=== PATIENT | female | born 1980 | race Caucasian/White ===

== ENCOUNTER → 2017-02-27 | Outpatient (CLI) | payer BC | LOC: BMCIMAGING 07:14 | PROVIDERS: ATTEND Family Medicine | DX: D25.9 Leiomyoma of uterus, unspecified (principal); R93.41 Abnormal radiologic findings on diagnostic imaging of renal pelvis, ureter, or bladder ==

== ENCOUNTER 2017-08-09 09:36 | Emergency (ER) | payer BC ==
[2017-08-09] MEDS ORDERED: NS 1,000 ML IV ONE (09:51)
--- NOTE | 2017-08-09 10:16 | EDPHY ---
H & P Stated Complaint: abdominal pain since colonoscopy yesterday Time Seen by Provider: 08/09/17 09:51 HPI/ROS: CHIEF COMPLAINT: Abdominal pain following colonoscopy HISTORY OF PRESENT ILLNESS: The patient presents to the ED with complaints of abdominal pain following a colonoscopy yesterday. The patient was undergoing colonoscopy for routine follow-up following a parasitic abdominal infection. The patient reportedly had 2 biopsies performed. She reports that her air conditioning coil assembler told her there was some moderate post biopsy bleeding which resolved with irrigation. The patient went home without complication. She began to develop abdominal pain at 2 o'clock in the afternoon yesterday. The patient denies fever or hematochezia. She denies prior abdominal surgical history. She denies significant past medical history. REVIEW OF SYSTEMS: A comprehensive 10 point review of systems is otherwise negative aside from elements mentioned in the history of present illness. Source: Patient Exam Limitations: No limitations - Personal History LMP (Females 10-55): Now Current Tetanus/Diphtheria Vaccine: No Current Tetanus Diphtheria and Acellular Pertussis (TDAP): No - Medical/Surgical History Hx Asthma: No Hx Chronic Respiratory Disease: No Hx Diabetes: No Hx Cardiac Disease: No Hx Renal Disease: No Hx Cirrhosis: No Hx Alcoholism: No Hx HIV/AIDS: No Hx Splenectomy or Spleen Trauma: No Other PMH: none reported - Social History Smoking Status: Never smoked - Physical Exam Exam: General Appearance: Alert, mild discomfort secondary to pain Eyes: Pupils equal and round no pallor or injection ENT, Mouth: Mucous membranes moist Respiratory: There are no retractions, lungs are clear to auscultation Cardiovascular: Regular rate and rhythm Gastrointestinal: Generalized abdominal tenderness, seems to be greatest in the right lower quadrant and left upper quadrant Neurological: A&O, normal motor function, normal sensory exam, normal cranial nerves Skin: Warm and dry, no rashes Musculoskeletal: Neck is supple nontender Extremities: symmetrical, full range of motion Constitutional: Initial Vital Signs Temperature (C) 37 C 08/09/17 09:44 Heart Rate 97 08/09/17 09:44 Respiratory Rate 19 08/09/17 09:44 Blood Pressure 89/75 L 08/09/17 09:44 O2 Sat (%) 98 08/09/17 09:44 O2 Delivery Mode Room Air Allergies/Adverse Reactions: No Known Allergies Allergy (Verified 08/09/17 09:44) Home Medications: Medication Instructions Recorded Docusate Sodium [Colace 100 MG (*)] 100 mg PO BID #20 cap 08/09/17 oxyCODONE/APAP 5/325 [Percocet 1 - 2 tab PO Q6-8PRN PRN #20 tab 08/09/17 5/325 (RX)] Medical Decision Making - Diagnostics Imaging Results: Imaging Impressions Abdomen CT 08/09/17 10:43 Impression: 1. Transmural wall thickening of the cecum and ascending colon, suggesting colitis or intramural hemorrhage. A small amount of air is present within the lateral wall of the cecum, compatible with prior biopsy. 2. Intrahepatic and extrahepatic biliary dilatation. 3. Probable hemangioma right hepatic lobe. 4. Large hyperenhancing mass within the right side of the uterus, most likely representing a uterine leiomyoma. Results called to Dr. Slava Levin at 11:45 a.m. ED Course/Re-evaluation: The patient presents to the ED with fairly significant abdominal pain and tenderness following a colonoscopy yesterday. The patient is noted to be hemodynamically stable. She had an IV established. She received a L of normal saline. She received 4 mg of IV morphine. The patient is noted to have leukocytosis. [place] [address]. The patient 's test is negative. Given the patient's tenderness and leukocytosis , CT scan of the abdomen pelvis was ordered to exclude evidence of intra- abdominal free air, abscess or perforation. CT scan of the abdomen pelvis demonstrates no evidence of a perforation, free air abscess. There are some inflammatory such changes noted within the wall the colon consistent with a intraluminal hematoma. I reviewed the patient's workup with the on-call air conditioning coil assembler Dr. Marie. He informs me this condition should be self-limited. There is clearly no evidence of a surgical abdomen at this point time. She is hemodynamically stable without any evidence of GI bleeding. I re-evaluated the patient at 1:24 p.m.. We reviewed the results of her CT scan laboratory testing. She is comfortable going home with a prescription for Percocet. She will return to the emergency department for the development of any GI bleeding, worsening pain, fever, intractable vomiting, lightheadedness or other concerns. Differential Diagnosis: Differential diagnosis considered includes perforation, obstruction, abscess, ectopic , urinary tract infection, pancreatitis - Data Points Laboratory Results: Laboratory Results 08/09/17 10:05 10/28/17 10:05 08/09/17 08/09/17 08/09/17 10:20 10:05 10:05 WBC RBC Hgb POC Hgb 15.0 gm/dL gm/dL (12.6-16.3) Hct POC Hct 44 % % (38-47) MCV MCH MCHC RDW Plt Count MPV Neut % (Auto) Lymph % (Auto) Casey % (Auto) Eos % (Auto) Baso % (Auto) Nucleat RBC Rel Count Absolute Neuts (auto) Absolute Lymphs (auto) Absolute Monos (auto) Absolute Eos (auto) Absolute Basos (auto) Absolute Nucleated RBC Immature Gran % Immature Gran # POC Sodium 138 mEq/L mEq/L (134-144) Sodium POC Potassium 3.7 mEq/L mEq/L (3.3-5.0) Potassium POC Chloride 101 mEq/L mEq/L (97-110) Chloride Carbon Dioxide Anion Gap POC BUN 11 mg/dL mg/dL (7-23) BUN Creatinine POC Creatinine 1.0 mg/dL mg/dL (0.6-1.0) Estimated GFR Glucose POC Glucose 101 mg/dL H mg/dL (70-100) Calcium Total Bilirubin 0.8 mg/dL mg/dL (0.1-1.4) Conjugated Bilirubin 0.2 mg/dL mg/dL (0.0-0.5) Unconjugated Bilirubin 0.6 mg/dL mg/dL (0.0-1.1) AST 23 IU/L IU/L (14-46) ALT 28 IU/L IU/L (9-52) Alkaline Phosphatase 64 IU/L IU/L (38-126) Total Protein 6.8 g/dL g/dL (6.3-8.2) Albumin 3.8 g/dL g/dL (3.5-5.0) Lipase 35 IU/L IU/L (23-300) Beta HCG, Qual NEGATIVE 08/09/17 08/09/17 10:05 10:05 WBC 16.56 10^3/uL H 10^3/uL (3.80-9.50) RBC 4.44 10^6/uL 10^6/uL (4.18-5.33) Hgb 14.1 g/dL g/dL (12.6-16.3) POC Hgb Hct 40.9 % % (38.0-47.0) POC Hct MCV 92.1 fL fL (81.5-99.8) MCH 31.8 pg pg (27.9-34.1) MCHC 34.5 g/dL g/dL (32.4-36.7) RDW 12.2 % % (11.5-15.2) Plt Count 245 10^3/uL 10^3/uL (150-400) MPV 9.0 fL fL (8.7-11.7) Neut % (Auto) 88.9 % H % (39.3-74.2) Lymph % (Auto) 6.2 % L % (15.0-45.0) Casey % (Auto) 3.9 % L % (4.5-13.0) Eos % (Auto) 0.2 % L % (0.6-7.6) Baso % (Auto) 0.3 % % (0.3-1.7) Nucleat RBC Rel Count 0.0 % % (0.0-0.2) Absolute Neuts (auto) 14.72 10^3/uL H 10^3/uL (1.70-6.50) Absolute Lymphs (auto) 1.02 10^3/uL 10^3/uL (1.00-3.00) Absolute Monos (auto) 0.65 10^3/uL 10^3/uL (0.30-0.80) Absolute Eos (auto) 0.03 10^3/uL 10^3/uL (0.03-0.40) Absolute Basos (auto) 0.05 10^3/uL 10^3/uL (0.02-0.10) Absolute Nucleated RBC 0.00 10^3/uL 10^3/uL (0-0.01) Immature Gran % 0.5 % % (0.0-1.1) Immature Gran # 0.09 10^3/uL 10^3/uL (0.00-0.10) POC Sodium Sodium 138 mEq/L mEq/L (134-144) POC Potassium Potassium 3.9 mEq/L mEq/L (3.5-5.2) POC Chloride Chloride 102 mEq/L mEq/L (97-110) Carbon Dioxide 24 mEq/l mEq/l (22-31) Anion Gap 12 mEq/L mEq/L (8-16) POC BUN BUN 12 mg/dL mg/dL (7-23) Creatinine 1.0 mg/dL mg/dL (0.6-1.0) POC Creatinine Estimated GFR > 60 Glucose 94 mg/dL mg/dL (70-100) POC Glucose Calcium 9.0 mg/dL mg/dL (8.5-10.4) Total Bilirubin Conjugated Bilirubin Unconjugated Bilirubin AST ALT Alkaline Phosphatase Total Protein Albumin Lipase Beta HCG, Qual Medications Given: Discontinued Medications Sodium Chloride (Ns) 1,000 mls @ 0 mls/hr IV EDNOW ONE; Wide Open PRN Reason: Protocol Stop: 08/09/17 09:52 Last Admin: 08/09/17 10:17 Dose: 1,000 mls Morphine Sulfate (Morphine) 4 mg IVP EDNOW ONE Stop: 08/09/17 10:12 Last Admin: 08/09/17 10: Dose: 4 mg Point of Care Test Results: 08/09/17 10:05 POC Sodium 138 POC Potassium 3.7 POC Chloride 101 POC BUN 11 POC Creatinine 1.0 POC Glucose 101 H Departure - Departure Disposition: Home, Routine, Self-Care Clinical Impression: Abdominal pain, Colonic hematoma Condition: Good Instructions: Abdominal Pain (ED) Additional Instructions: 1. Return to the emergency department for markedly worsening pain, fever, vomiting or other concerns. 2. Percocet as needed for pain, Zofran as needed for nausea. I do recommend taking a stool softener such as Colace while taking narcotic medications. 3. Please follow up as scheduled with your regular physician and air conditioning coil assembler. Please contact the GI service for any questions that arise this weekend. Referrals: Naye Alarcon MD [Primary Care Provider] - As per Instructions
[2017-08-09 10:19] LABS: PLATELET COUNT 245 10^3/uL (150-400)
[2017-08-09] MEDS ORDERED: IOPAMIDOL (ISOVUE-300) 100 ML BTL ONE (10:49)
[2017-08-09 12:16] VITALS: RESP 16
[2017-08-09 13:42] VITALS: BP 102/69; PULSE 74; TEMP 97.7; O2SAT 96
== END 2017-08-09 13:57 | disposition home or self-care (01) ==
DX: K92.89 Other specified diseases of the digestive system (principal); E86.9 Volume depletion, unspecified
CPT/HCPCS: 82947-QW; 96374; Q9967

== ENCOUNTER → 2019-02-19 | Outpatient (CLI) | payer BC | LOC: BMCIMAGING 12:49 | PROVIDERS: ATTEND Family Medicine | DX: N85.2 Hypertrophy of uterus (principal); R19.00 Intra-abdominal and pelvic swelling, mass and lump, unspecified site ==

== ENCOUNTER → 2019-03-17 | Outpatient (CLI) | payer BC | LOC: FIMAGING 13:50 ==